=== PATIENT | female | born 1935 | race Caucasian/White ===

== ENCOUNTER → 2021-11-17 | Outpatient (CLI) | payer MEDICARE | LOC: US 09:29 → EDSEX 09:29 | PROVIDERS: ATTEND Internal Medicine Hepatology | DX: R94.5 Abnormal results of liver function studies (principal) | CPT/HCPCS: 76700 ==

== ENCOUNTER → 2022-09-21 | Outpatient (CLI) | payer MEDICARE | LOC: MRI 09:47 | PROVIDERS: ATTEND Physical Medicine & Rehabilitation Pain Medicine | DX: M48.062 Spinal stenosis, lumbar region with neurogenic claudication (principal); M46.1 Sacroiliitis, not elsewhere classified; M16.11 Unilateral primary osteoarthritis, right hip | CPT/HCPCS: 72148; 72200 ==

== ENCOUNTER 2024-06-08 21:46 | Inpatient (IN) | payer MEDICARE ==
[~2024-06-08] VITALS: Ht 165.1 cm; Wt 81.6 kg
[2024-06-08 23:00] VITALS: TEMP 97.5
[2024-06-09] VITALS (9 sets, daily range): BP systolic 100–137; BP diastolic 47–66; PULSE 55–80; RESP 17–18; TEMP 97.7–98.6; O2SAT 96–100
[2024-06-09] MEDS ORDERED: IOPAMIDOL 370 MG/ML 100 ML INFUS..BTL INJ ONE (00:05)
[2024-06-09] MEDS ORDERED: DEXTROSE 50% SYRINGE 50 ML IV PRN (00:30)
[2024-06-09] MEDS: ONDANSETRON HCL INJ 2MG/ML 2ML 2 MG/ML VIAL IV STA (00:47)
[2024-06-09] MEDS: SODIUM CHLORIDE 0.9% 1000ML 1,000 ML IV ONE (00:47)
[2024-06-09] MEDS: KETOROLAC TROMETHAMINE 30 MG/ML VIAL IV STA (00:48)
[2024-06-09] MEDS ORDERED: HYDRALAZINE HCL 20 MG/ML VIAL IV PRN (01:30)
[2024-06-09] MEDS ORDERED: ACETAMINOPHEN 325 MG TAB PO PRN (01:30)
[2024-06-09] MEDS ORDERED: TRAMADOL PO (02:30)
[2024-06-09] MEDS ORDERED: GABAPENTIN300 MG PO (02:30)
[2024-06-09] MEDS ORDERED: METFORMIN HCL500 MG PO (02:30)
[2024-06-09] MEDS ORDERED: LEVOTHYROXINE88 MCG PO (02:32)
[2024-06-09] MEDS ORDERED: METOPROLOL TART25 MG PO (02:32)
[2024-06-09] MEDS: SODIUM CHLORIDE 0.9% 1000ML 1,000 ML IV SCH (02:43)
[2024-06-09] MEDS: TRAMADOL/APAP 37.5MG-325MG TAB PO SCH (02:45)
[2024-06-09 05:33] LABS: BASOPHILS % 0.3 % (0.0-1.0); EOSINOPHILS % 0.5 % (0.0-6.0); HEMATOCRIT 31.2 % (34.2-44.1); HEMOGLOBIN 10.9 g/dL (12.0-16.0); LYMPHOCYTES # (AUTO) 1.4 (1.0-3.2); LYMPHOCYTES % 23.6 % (18.0-39.1); MEAN CORPUSCULAR HEMOGLOBIN 31.8 pg (28-32); MEAN CORPUSCULAR HGB CONC 34.9 g/dL (31-35); MONOCYTES # (AUTO) 0.6 (0.2-0.8); MONOCYTES % 9.9 % (4.4-11.3); NEUTROPHILS # (AUTO) 3.9 (2.1-6.9); NEUTROPHILS % 64.9 % (38.7-80.0); PLATELET COUNT 202 x10e3/uL (140-360); RED BLOOD COUNT 3.43 x10e6/uL (3.6-5.1); RED CELL DISTRIBUTION WIDTH 12.9 % (11.7-14.4); WHITE BLOOD COUNT 6.06 x10e3/uL (4.8-10.8)
[2024-06-09] MEDS: INSULIN LISPRO 100 UNIT/1 ML 3ML VIAL SQ SCH (07:30)
[2024-06-09 08:11] LABS: CREATININE, SERUM 0.93 mg/dL (0.57-1.11)
[2024-06-09] MEDS: ONDANSETRON HCL INJ 2MG/ML 2ML 2 MG/ML VIAL IV PRN ×2 (08:41→12:15)
[2024-06-09] MEDS ORDERED: NITROFURANTOIN100 MG PO (08:47)
[2024-06-09] MEDS ORDERED: LISINOPRIL10 MG PO (09:19)
[2024-06-09] MEDS: SODIUM CHLORIDE 1 GM TAB PO SCH (12:15)
[2024-06-09 13:34] LABS: BILIRUBIN,URINE NEGATIVE (NEGATIVE); CLARITY,URINE CLEAR (CLEAR); COLOR,URINE YELLOW (YELLOW); GLUCOSE, URINE NEGATIVE (NEGATIVE); KETONES,URINE NEGATIVE (NEGATIVE); LEUKOCYTE ESTERASE ,URINE NEGATIVE (NEGATIVE); NITRITE,URINE NEGATIVE (NEGATIVE); PH,URINE 6.5 (5 - 7); PROTEIN,URINE DIPSTICK NEGATIVE (NEGATIVE); URINE UROBILINOGEN 0.2 mg/dL (0.2 - 1)
[2024-06-09 14:33] LABS: EPITHELIAL CELLS,URINE MODERATE /LPF
[2024-06-09 14:43] LABS: BACTERIA,URINE MODERATE /HPF
[2024-06-09 14:45] LABS: RENAL EPITHELIAL CELLS,URINE FEW
[2024-06-09 14:47] LABS: TRANSITIONAL EPI CELLS,URINE FEW
[2024-06-10] VITALS (7 sets, daily range): BP systolic 112–149; BP diastolic 53–65; PULSE 61–85; RESP 16–22; TEMP 97.8–98.8; O2SAT 96–100
[2024-06-10] MEDS: LEVOTHYROXINE SODIUM 88 MCG TAB PO SCH (06:00)
[2024-06-10 06:07] LABS: ALBUMIN 3.4 g/dL (3.5-5.0); ALBUMIN/GLOBULIN RATIO 1.3 (0.8-2.0); ANION GAP 10.4 mmol/L (8-16); BILIRUBIN,TOTAL 0.7 mg/dL (0.2-1.2); CALCIUM 8.8 mg/dL (8.4-10.2); CREATININE, SERUM 0.85 mg/dL (0.57-1.11); POTASSIUM 4.4 mmol/L (3.5-5.1); TOTAL PROTEIN 6.1 g/dL (6.5-8.1)
[2024-06-10] MEDS: ACETAMINOPHEN/CODEINE 300MG - 30MG TAB PO SCH (17:19)
[2024-06-11] VITALS: BP 152/97; PULSE 67; PULSE 84; RESP 21; TEMP 98; TEMP 98.8; O2SAT 100
[2024-06-11] MEDS ORDERED: METOCLOPRAMIDE HCL 10 MG/2ML VIAL IV SCH
[2024-06-11] MEDS: METOCLOPRAMIDE HCL 10 MG/2ML VIAL IV SCH (00:28)
[2024-06-11 04:00] VITALS: BP 137/47; PULSE 61; RESP 18; TEMP 98.4; O2SAT 100
[2024-06-11 05:55] LABS: BASOPHILS % 0.6 % (0.0-1.0); EOSINOPHILS # (AUTO) 0.2 (0.0-0.4); HEMATOCRIT 31.8 % (34.2-44.1); HEMOGLOBIN 10.6 g/dL (12.0-16.0); LYMPHOCYTES # (AUTO) 1.9 (1.0-3.2); LYMPHOCYTES % 39.3 % (18.0-39.1); MEAN CORPUSCULAR HEMOGLOBIN 32.3 pg (28-32); MEAN CORPUSCULAR HGB CONC 33.3 g/dL (31-35); MONOCYTES # (AUTO) 0.6 (0.2-0.8); MONOCYTES % 11.9 % (4.4-11.3); NEUTROPHILS # (AUTO) 2.1 (2.1-6.9); NEUTROPHILS % 43.6 % (38.7-80.0); PLATELET COUNT 184 x10e3/uL (140-360); RED BLOOD COUNT 3.28 x10e6/uL (3.6-5.1); WHITE BLOOD COUNT 4.78 x10e3/uL (4.8-10.8)
[2024-06-11 06:16] LABS: CALCIUM 8.4 mg/dL (8.4-10.2); CREATININE, SERUM 0.8 mg/dL (0.57-1.11)
[2024-06-11 08:16] VITALS: BP 107/50; PULSE 62; RESP 15; TEMP 98.5; O2SAT 98
[2024-06-11] MEDS: TRAMADOL HCL 50 MG TAB PO SCH (08:58)
[2024-06-11 10:06] VITALS: BP 161/58; PULSE 62; RESP 15; TEMP 98.5; O2SAT 98
[2024-06-11] MEDS ORDERED: SODIUM CHLORI1000 M2 PO (13:23)
[2024-06-11 16:57] LABS: HEPATITIS B SURFACE AG (P) Non Reactive
[2024-06-11 16:58] LABS: HEPATITIS C ANTIBODY Non Reactive
[2024-06-12] MEDS ORDERED: SODIUM CHLORIDE 1 GM TAB PO SCH (09:00)
== END 2024-06-11 14:08 | disposition home or self-care (01) | DRG 641 ==
LOC: FSED 22:13 → ERHOLD 06-09 00:30 → MED/SURG3 06-09 02:12
PROVIDERS: ADMIT Internal Medicine; ATTEND Internal Medicine
DX: E87.1 Hypo-osmolality and hyponatremia (principal); E86.0 Dehydration; R19.7 Diarrhea, unspecified; K80.20 Calculus of gallbladder without cholecystitis without obstruction; R44.1 Visual hallucinations; K59.00 Constipation, unspecified; R53.1 Weakness; R11.2 Nausea with vomiting, unspecified; R12 Heartburn; K44.9 Diaphragmatic hernia without obstruction or gangrene; R16.0 Hepatomegaly, not elsewhere classified; I10 Essential (primary) hypertension; E11.40 Type 2 diabetes mellitus with diabetic neuropathy, unspecified; Z79.84 Long term (current) use of oral hypoglycemic drugs; E03.9 Hypothyroidism, unspecified; M48.00 Spinal stenosis, site unspecified; G89.29 Other chronic pain; Z87.440 Personal history of urinary (tract) infections; Z11.52 Encounter for screening for COVID-19; Z79.899 Other long term (current) drug therapy
CPT/HCPCS: 0223U; 36415; 74177; 76700; 80048; 80053; 80076; 81001; 81003; 82948; 84550; 85025; 96372; 99252; 99284; J1885; J2405; J2470; J2765; J7030; Q9967